=== PATIENT | female | born 1950 | race Caucasian/White ===

== ENCOUNTER 2021-12-03 00:44 | Day surgery (SDC) | payer MEDICARE, OTHER, SELFPAY ==
[2021-11-23 10:22] VITALS: BMI 37.0
--- NOTE | 2021-12-02 13:18 | WPDANESEPPF ---
Anes - Initial Pre Proc Eval Procedure: Operation Date: 12/03/21 13:00 Proposed Procedures p Colonoscopy - Edgar Farr MD Date/Time: 12/02/21 13:18 Surgeon: Edgar Farr MD Pre Op Diagnosis: positive cologuard Patient Data Age: 71 Gender: F Height: 1.6 m Weight: 95 kg Allergies Allergy/AdvReac Type Severity Reaction Status Date / Time No Known Allergies Allergy Unknown Verified 12/03/21 12:09 Home Medications Medication Instructions Recorded Confirmed Type Vitamin B-12 6,000 mg PO DAILY 11/23/21 12/03/21 History ascorbic acid (vitamin C) 250 mg 500 mg PO DAILY 11/23/21 12/03/21 History chewable tablet biotin 5,000 mcg disintegrating 10,000 mcg PO DAILY 11/23/21 12/03/21 History tablet calcium carbonate 600 mg-vitamin 1 tablet PO DAILY 11/23/21 12/03/21 History D3 20 mcg (800 unit) chewable tablet (Caltrate 600 plus D) [id number]-minerals 1 tablet PO DAILY 11/23/21 12/03/21 History Patient hx anesthesia problems: none Family hx anesthesia problems: none Results Review: All pre-operative results and documents have been reviewed as part of the pre-operative evaluation. [facility] Past Medical History Medical History (Updated 12/02/21 @ 13:18 by Kingston Vaughn DO) Endometriosis PONV (postoperative nausea and vomiting) Surgical History Surgical History (Updated 12/02/21 @ 13:18 by Kingston Vaughn DO) History of hysterectomy Social History Social History Smoking status: Never smoker Alcohol intake: current Substance use: never Substance use type: does not use Living arrangements: with family Spiritual care concerns: No Anes - Eval Final PreProcedure Day of Procedure 12/02/21 13:18 Patient weight: obese Heart: regular rate and rhythm Lungs: clear to auscultation Airway: Mallampati scale class II Neurological: alert and oriented Last oral intake: >/= 8 hours ASA classification: II Emergent: no Anesthetic plan: proceed Anesthesia type and monitoring: general GIVS and standard monitoring Results Review: All pre-operative results and documents have been reviewed as part of the pre-operative evaluation. Informed Consent: The patient's anesthetic plan and its attendant risks and benefits were discussed with the patient/family/POA. Questions were solicited and answers provided to the satisfaction of the patient/family/POA.
[2021-12-03 12:10] VITALS: BP 144/120; PULSE 75; RESP 18; TEMP 36.2; O2SAT 98; BMI 37.0
[2021-12-03] MEDS: LACTATED RINGERS 1,000 ML 150 ML IV CONT (12:13)
--- NOTE | 2021-12-03 12:20 | PM.HPGS ---
History of Present Illness History of Present Illness Consent: Risks, benefits, and alternatives have been discussed and questions answered. Patient agrees to proceed with procedure. Chief complaint: positive cologuard Narrative: Sarah Muñoz is a 71 year old female Referred for colon cancer screening. She had Performed a Cologuard test which was positive. Review of Systems Review of Systems: All systems reviewed & are unremarkable except as noted in HPI and below PMFSH Past Medical History Medical History Endometriosis PONV (postoperative nausea and vomiting) Surgical History Surgical History History of hysterectomy Social History Social History Smoking status: Never smoker Alcohol intake: current Substance use: never Substance use type: does not use Living arrangements: with family Spiritual care concerns: No Meds Home Medications and Allergies Home Medications Medication Instructions Recorded Confirmed Type Vitamin B-12 6,000 mg PO DAILY 11/23/21 12/03/21 History ascorbic acid (vitamin C) 250 mg 500 mg PO DAILY 11/23/21 12/03/21 History chewable tablet biotin 5,000 mcg disintegrating 10,000 mcg PO DAILY 11/23/21 12/03/21 History tablet calcium carbonate 600 mg-vitamin 1 tablet PO DAILY 11/23/21 12/03/21 History D3 20 mcg (800 unit) chewable tablet (Caltrate 600 plus D) [id number]-Hy-[id number]-minerals 1 tablet PO DAILY 11/23/21 12/03/21 History Allergies Allergy/AdvReac Type Severity Reaction Status Date / Time No Known Allergies Allergy Unknown Verified 12/03/21 12:09 Vital Signs Vital Signs - 24 hr 12/03/21 12:10 Temperature 36.2 C L Pulse Rate 75 Respiratory Rate 18 Blood Pressure 144/120 H Pulse Oximetry 98 Oxygen Delivery Room Air Exam Const: General: alert Orientation/consciousness: patient oriented x3 Resp: Auscultation: clear to auscultation bilaterally Cardio: Rhythm: regular rhythm GI: GI Palp: Yes Soft to palpation and No Tenderness to palpation present (GI) Neuro: General: patient oriented x3 Assessment and Plan Assessment and plan (1) Colon cancer screening: Code(s): Z12.11 - Encounter for screening for malignant neoplasm of colon Status: Acute
[2021-12-03 13:12] VITALS: BP 113/59; PULSE 65; RESP 13; O2SAT 96
[2021-12-03 13:22] VITALS: BP 115/57; PULSE 63; RESP 16; O2SAT 96
[2021-12-03 13:32] VITALS: BP 136/84; PULSE 62; RESP 18; O2SAT 97
== END 2021-12-03 13:53 | disposition home or self-care (01) ==
PROVIDERS: PCP Internal Medicine; Visit Provider Internal Medicine Gastroenterology
PROC: 0DJD8ZZ Inspection of Lower Intestinal Tract, Via Natural or Artificial Opening Endoscopic (ICD-10-PCS; CPT 45378; principal; 2021-12-03 13:00)
DX: Z12.11 Encounter for screening for malignant neoplasm of colon (principal); K57.30 Diverticulosis of large intestine without perforation or abscess without bleeding; D12.5 Benign neoplasm of sigmoid colon; D12.2 Benign neoplasm of ascending colon; R19.5 Other fecal abnormalities; E66.9 Obesity, unspecified; Z68.37 Body mass index [BMI] 37.0-37.9, adult
CPT/HCPCS: 45385; 45380; 88305; J2001; J2704; J7120